=== PATIENT | male | born 1975 | race Caucasian/White ===

== ENCOUNTER → 2017-07-19 | Outpatient (CLI) | payer OTHER ==
[~2017-07-19] MED LIST: IBUP800 PO; PENVK500 PO
[2017-07-19 14:21] LABS: Specimen Source PENIS
[2017-07-20 23:53] LABS: Source Penis
== END ==
LOC: LAB 14:19
PROVIDERS: Nurse Practitioner
DX: N34.1 Nonspecific urethritis (principal)
CPT/HCPCS: 87491; 87591

== ENCOUNTER 2019-05-12 06:10 | Day surgery (SDC) | payer OTHER ==
[~2019-05-12] VITALS: Ht 172.7 cm; Wt 86.3 kg
[~2019-05-12 06:10] MED LIST changes: +CLAR500; +Flonase 0.05% N16 GM; +PRED20
== END 2019-05-12 11:21 | disposition home or self-care (01) ==
LOC: ORSCSDS 06:10
PROVIDERS: Otolaryngology
PROC: 09BU8ZZ Excision of Right Ethmoid Sinus, Via Natural or Artificial Opening Endoscopic (ICD-10-PCS; principal; 2019-05-12 07:30)
PROC: 8E09XBZ Computer Assisted Procedure of Head and Neck Region (ICD-10-PCS; principal; 2019-05-12 07:30)
PROC: 09BV8ZZ Excision of Left Ethmoid Sinus, Via Natural or Artificial Opening Endoscopic (ICD-10-PCS; principal; 2019-05-12 07:30)
DX: J32.4 Chronic pansinusitis (principal); J33.0 Polyp of nasal cavity; F17.210 Nicotine dependence, cigarettes, uncomplicated
CPT/HCPCS: 88305; 88311; C2625; J1100; J2250; J2405; J2704; J2710; J3010; J7120

== ENCOUNTER 2024-06-07 09:57 | Day surgery (SDC) | payer OTHER ==
[~2024-06-07] VITALS: Ht 172.7 cm; Wt 94.4 kg
[~2024-06-07 09:57] MED LIST changes: +Lactated Ringer's 1,000 ML IV ONE
[2024-06-07] MEDS ORDERED: ATOR40TA PO (10:35)
[2024-06-07] MEDS ORDERED: LISI20 PO (10:35)
[2024-06-07] MEDS ORDERED: Lactated Ringer's 1,000 ML IV ONE (10:56)
[2024-06-07] MEDS ORDERED: Ipratropium/Albuterol SulF 2.5-0.5MG/3 ML Amp ONE (10:57)
[2024-06-07] MEDS ORDERED: propofoL 150 ML IV ONE (11:07)
--- NOTE | 2024-06-07 11:07 | NUR ---
06/07/[address] JENNY Montilla PRESCRIBED DUONEB FOR PATIENT. RN EDUCATED PT ON USAGE AND PROVIDED OXYGENATED DUONEB INHALATION IN PRE0P.
[2024-06-07] MEDS ORDERED: Lidocaine HCl 4% 5 ML SDA ONE ×2 (11:12→11:39)
[2024-06-07] MEDS ORDERED: HYDROmorphone HCl/Pf 1MG SYR ONE (11:32)
[2024-06-07] MEDS ORDERED: Ketorolac Tromethamine 30mg Vial ONE (11:33)
[2024-06-07] MEDS ORDERED: Ondansetron HCl 2 MG / ML 2ML Vial ONE (11:33)
[2024-06-07] MEDS ORDERED: Metoclopramide HCl 5MG / ML 2ML Vial ONE (11:33)
[2024-06-07] MEDS ORDERED: Dexamethasone Sod Phos 10 MG/ML 1ML VIAL ONE (11:33)
[2024-06-07] MEDS ORDERED: Lidocaine 2%-Epineph 1:200000 20 ML SDV ONE (11:38)
[2024-06-07] MEDS ORDERED: EPINEPhrine HCl 1 MG / ML 30ML Vial ONE ×2 (11:38→13:41)
[2024-06-07] MEDS ORDERED: Rocuronium Bromide 10 MG/ML 5ML Injection IV ONE (12:08)
[2024-06-07] MEDS ORDERED: Glycopyrrolate 0.2 MG/ML 5ML VIAL ONE (12:09)
[2024-06-07] MEDS ORDERED: Esmolol HCL 10 MG/ML 10ML VIAL ONE (12:18)
[2024-06-07] MEDS ORDERED: Sugammadex Sodium 200 MG/2ML SDV (100 MG/ML) ONE (12:31)
[2024-06-07] MEDS ORDERED: Metoprolol Tartrate 5 ML IV ONE (12:43)
[2024-06-07] MEDS ORDERED: Phenylephrine HCl 100 MCG/ML-NS 10MLSYR (1MG/10ML) ONE (12:52)
[2024-06-07] MEDS ORDERED: Tranexamic Acid 100 ML IV ONE (13:34)
[2024-06-07] MEDS ORDERED: FentaNYL Citrate 50 MCG/ML 2 ML Injection ONE ×2 (14:53→15:23)
--- NOTE | 2024-06-07 15:03 | NUR ---
06/07/24 1503 Moshe Villagran FENTANYL 25MCG IV GIVEN AT 1500 FOR FACIAL PAIN AT 02/06
[2024-06-07 15:04] VITALS: BP 142/101
[2024-06-07] MEDS ORDERED: propofoL 20 ML IV ONE ×3 (15:23)
== END 2024-06-07 16:00 | disposition home or self-care (01) ==
LOC: ORSCSDS 09:57
PROVIDERS: Otolaryngology
PROC: 0NBF4ZZ Excision of Right Ethmoid Bone, Percutaneous Endoscopic Approach (ICD-10-PCS; principal; 2024-06-07 11:45)
PROC: 09SM0ZZ Reposition Nasal Septum, Open Approach (ICD-10-PCS; principal; 2024-06-07 11:45)
PROC: 0NBG4ZZ Excision of Left Ethmoid Bone, Percutaneous Endoscopic Approach (ICD-10-PCS; principal; 2024-06-07 11:45)
DX: J32.4 Chronic pansinusitis (principal); J34.2 Deviated nasal septum; J34.3 Hypertrophy of nasal turbinates; I10 Essential (primary) hypertension; G47.33 Obstructive sleep apnea (adult) (pediatric); F17.210 Nicotine dependence, cigarettes, uncomplicated; Z79.899 Other long term (current) drug therapy; E66.9 Obesity, unspecified; Z68.32 Body mass index [BMI] 32.0-32.9, adult
CPT/HCPCS: 88305; 88311; C2625; J0171; J1100; J1171; J1885; J2003; J2371; J2405; J2704; J2765; J3010; J7120